=== PATIENT | female | born 1960 | race African-American/Black ===

== ENCOUNTER 2017-01-05 08:19 | Emergency (ER) | payer MEDICARE, OTHER ==
[2017-01-05 08:27] VITALS: BP 147/82
[2017-01-05] MEDS ORDERED: LIDOCAINE 5% (700 MG) TRANSDERMAL ADH..PATCH TP ONE (08:52)
[2017-01-05] MEDS ORDERED: KETOROLAC TROMETHAMINE 60 MG/2 ML SDV IM ONE (08:52)
--- NOTE | 2017-01-05 08:56 | ER Document Report ---
ED General - General Chief Complaint: Leg Pain Stated Complaint: LEG PAIN Time Seen by Provider: 01/05/17 08:52 - HPI Patient complains to provider of: Right leg pain Notes: Patient coming in for right leg pain ongoing for the last few days. Patient states recently moved from [place] to the [place] area. Patient states pain in the middle of his thigh. Patient states not relieved with her Percocet that she is prescribed for her chronic pain. Denies any other trauma. States pain with ambulation. Denies any fevers chills nausea vomiting diarrhea denies any numbness or tingling. - Related Data Allergies/Adverse Reactions: shellfish derived Allergy (Verified 01/05/17 08:28) Past Medical History - Social History Smoking Status: Unknown if Ever Smoked Family History: Reviewed & Not Pertinent Renal/ Medical History: Denies: Hx Peritoneal Dialysis Review of Systems - Review of Systems Constitutional: No symptoms reported EENT: No symptoms reported Cardiovascular: No symptoms reported Respiratory: No symptoms reported Gastrointestinal: No symptoms reported Genitourinary: No symptoms reported Female Genitourinary: No symptoms reported Musculoskeletal: Muscle pain Skin: No symptoms reported Hematologic/Lymphatic: No symptoms reported Neurological/Psychological: No symptoms reported -: Yes All other systems reviewed and negative Physical Exam - Vital signs Vitals: Temp Pulse BP Pulse Ox 98.6 F 82 147/82 H 96 01/05/17 08:26 01/05/17 08:26 01/05/17 08:26 01/05/17 08:26 Interpretation: Normal - General General appearance: Appears well, Alert - HEENT Head: Normocephalic, Atraumatic Eyes: Normal Pupils: PERRL - Respiratory Respiratory status: No respiratory distress Chest status: Nontender Breath sounds: Normal Chest palpation: Normal - Cardiovascular Rhythm: Regular Heart sounds: Normal auscultation Murmur: No - Abdominal Inspection: Normal Distension: No distension Bowel sounds: Normal Tenderness: Nontender Organomegaly: No organomegaly - Back Back: Normal, Nontender - Extremities General upper extremity: Normal inspection, Nontender, Normal color, Normal ROM , Normal temperature General lower extremity: Normal inspection, Tender - Tenderness to palpation to the mid lateral right thigh no signs of obvious trauma seen, Normal color, Normal ROM, Normal temperature, Normal weight bearing. No: Leti's sign - Neurological Neuro grossly intact: Yes Cognition: Normal Orientation: AAOx4 Lauren Coma Scale Eye Opening: Spontaneous Lauren Coma Scale Verbal: Oriented [place] Coma Scale Motor: Obeys Commands Lauren Coma Scale Total: 15 Speech: Normal Motor strength normal: LUE, RUE, LLE, RLE Sensory: Normal - Psychological Associated symptoms: Normal affect, Normal mood - Skin Skin Temperature: Warm Skin Moisture: Dry Skin Color: Normal Course - Re-evaluation Re-evalutation: 01/05/17 09:01 Patient more likely has a muscle strain. Patient is asking for a cortisone shot. Explained the patient do not give cortisone shots here. Splint to the patient she can use ice heat for pain control I will give the patient aLidoderm patch and a shot of Toradol.Patient is to continue with her chronic pain regimen. - Vital Signs Vital signs: Temp Pulse Resp BP Pulse Ox 98.6 F 82 147/82 H 96 01/05/17 08:26 01/05/17 08:26 01/05/17 08:26 01/05/17 08:26 Discharge - Discharge Clinical Impression: Muscle strain Condition: Good Disposition: HOME, SELF-CARE Instructions: Ice Massage ([facility]), Muscle Strain ([facility]), Warm Packs ([facility]) Additional Instructions: Examination today is consistent with a muscle strain. He may continue to take her medications at home for pain he may also take Tylenol and Motrin for pain control. Ice packs ice massage and warm packs will also aid in your pain. I will give you a prescription for lidocaine patches. Please be aware that these patches may be expensive and your insurance may not cover them. If your insurance does not cover the patches she can ask your pharmacist about over-the- counter patches or creams (salonpas lidocaine patches, aspercreme with lidocaine ) Prescriptions: Lidocaine [Lidoderm] 700 mg TP DAILY #30 adh..patch Forms: Return to Work
== END 2017-01-05 09:13 | disposition home or self-care (01) ==
LOC: ER 08:19
DX: T14.8XXA Other injury of unspecified body region, initial encounter (principal); X58.XXXA Exposure to other specified factors, initial encounter; M79.1 Myalgia; G89.29 Other chronic pain; Z79.891 Long term (current) use of opiate analgesic; Z91.013 Allergy to seafood
CPT/HCPCS: 99283; 96372; J1885

== ENCOUNTER 2017-11-08 11:19 | Emergency (ER) | payer MEDICARE ==
[2017-11-08] MEDS ORDERED: ONDANSETRON 4 MG TAB.RAPDIS PO ONE (13:18)
[2017-11-08 14:37] LABS: ABSOLUTE EOSINOPHILS # (AUTO) 0.1 10^3/uL (0.0-0.6); ABSOLUTE LYMPHOCYTES (AUTO) 1.4 10^3/uL (0.5-4.7); ABSOLUTE MONOCYTES (AUTO) 0.3 10^3/uL (0.1-1.4); ABSOLUTE NEUT (AUTO) 1.4 10^3/uL (1.7-8.2); BASOPHILS % (AUTO) 1.2 % (0-2); EOSINOPHILS % (AUTO) 2.9 % (0-6); HEMATOCRIT 43.5 % (36.0-47.0); HEMOGLOBIN 14.7 g/dL (12.0-15.5); MEAN CORPUSCULAR HEMOGLOBIN 29.4 pg (27.0-33.4); MEAN CORPUSCULAR HGB CONC 33.8 g/dL (32.0-36.0); MEAN CORPUSCULAR VOLUME 87 fl (80-97); MONOCYTES % (AUTO) 8.1 % (3-13); PLATELET COUNT 270 10^3/uL (150-450); RED CELL DISTRIBUTION WIDTH 14.3 % (11.5-14.0); SEGMENTED NEUTROPHILS % (AUTO) 43.8 % (42-78); TOTAL CELLS COUNTED % (AUTO) 100 %; WHITE BLOOD COUNT 3.1 10^3/uL (4.0-10.5)
[2017-11-08 14:55] LABS: ALANINE AMINOTRANSFERASE 27 U/L (9-52); ALBUMIN 4.7 g/dL (3.5-5.0); ALKALINE PHOSPHATASE 78 U/L (38-126); ANION GAP 10 (5-19); ASPARTATE AMINO TRANSFERASE 36 U/L (14-36); BILIRUBIN,DIRECT 0.4 mg/dL (0.0-0.4); BILIRUBIN,TOTAL 0.6 mg/dL (0.2-1.3); BLOOD UREA NITROGEN 14 mg/dL (7-20); CALCIUM 9.7 mg/dL (8.4-10.2); CARBON DIOXIDE 33 mmol/L (22-30); CHLORIDE 101 mmol/L (98-107); GLUCOSE 108 mg/dL (75-110); POTASSIUM 4.2 mmol/L (3.6-5.0); SODIUM 143.5 mmol/L (137-145); TOTAL PROTEIN 8.7 g/dL (6.3-8.2)
--- NOTE | 2017-11-08 15:35 | ER Document Report ---
ED General - General Chief Complaint: Abdominal Pain Stated Complaint: ABDOMINAL PAIN Time Seen by Provider: 11/08/17 13:16 Mode of Arrival: Ambulatory Information source: Patient, Relative, [facility] Records Notes: 57-year-old female with spinal stenosis, chronic pain presents with 1 week of generalized abdominal cramping that worsened over the last 3 days. Patient has had associated nausea without vomiting. Yesterday she states while at [facility] she got lightheaded when her abdominal pain increased and then "her bowels exploded". She states she had a large bowel movement like "when you take a laxative". She denies any black or bloody stools. She denies taking a laxative. She is on long-term narcotic medication. She takes OxyContin 3 times daily. She denies any sick contacts, recent travel or recent antibiotic use. She reports inability to eat. TRAVEL OUTSIDE OF THE [place] IN LAST 30 DAYS: No - HPI Onset: Last week Onset/Duration: Gradual, Persistent, Worse Quality of pain: Cramping Severity: Moderate Associated symptoms: Diarrhea, Nausea, Sweating. denies: Chest pain, Fever, Headache, Vomiting, Shortness of breath Exacerbated by: Food Relieved by: Remaining still, Other - Bowel movement Similar symptoms previously: No Recently seen / treated by doctor: No - Related Data Allergies/Adverse Reactions: shellfish derived Allergy (Verified 11/08/17 11:21) Past Medical History - General Information source: Patient, Relative, [facility] Records - Social History Smoking Status: Never Smoker Frequency of alcohol use: Occasional Drug Abuse: None Lives with: Spouse/Significant other Family History: Reviewed & Not Pertinent Patient has suicidal ideation: No Patient has homicidal ideation: No Renal/ Medical History: Denies: Hx Peritoneal Dialysis Review of Systems - Review of Systems Notes: REVIEW OF SYSTEMS: CONSTITUTIONAL : Denies fever, chills, or sweats. Denies recent illness. Denies weight loss, recent hospitalizations. EENT: Denies visual changes, eye pain. Denies nasal or sinus congestion or discharge. Denies sore throat, oral lesions, difficulty swallowing. CARDIOVASCULAR: Denies chest pain. Denies palpitations. Denies lower extremity edema. RESPIRATORY: Denies cough, cold, or chest congestion. Denies shortness of breath, wheezing. GASTROINTESTINAL: Denies abdominal distention. Denies vomiting. Denies blood in vomitus, stools, or per rectum. Denies black, tarry stools. Denies constipation. GENITOURINARY: Denies difficulty urinating, painful urination, frequency, blood in urine, or vaginal discharge. MUSCULOSKELETAL: Denies back or neck pain or stiffness. Denies joint pain or swelling. SKIN: Denies rash, lesions or sores. HEMATOLOGIC : Denies easy bruising or bleeding. LYMPHATIC: Denies swollen glands. NEUROLOGICAL: Denies confusion or altered mental status. Denies passing out or loss of consciousness. Denies headache. Denies weakness or paralysis. Denies problems difficulty with ambulation, slurred speech. Denies sensory loss , numbness, or tingling. Denies seizures. PSYCHIATRIC: Denies anxiety or stress. Denies depression, suicidal ideation, or homicidal ideation. Denies visual or auditory hallucinations. Physical Exam - Vital signs Vitals: Temp Pulse Resp BP Pulse Ox 98.7 F 89 16 110/78 96 11/08/17 12:02 11/08/17 12:02 11/08/17 12:02 11/08/17 12:02 11/08/17 12:02 Interpretation: No: Hypotensive, Hypertensive, Hypoxic, Febrile - Notes Notes: PHYSICAL EXAMINATION: GENERAL: Well-appearing, well-nourished and in no acute distress. HEAD: Atraumatic, normocephalic. EYES: Pupils equal round and reactive to light, extraocular movements intact, conjunctiva are normal. ENT: Nares patent, oropharynx clear without exudates. Moist mucous membranes. NECK: Normal range of motion, supple without lymphadenopathy LUNGS: Breath sounds clear to auscultation bilaterally and equal. No wheezes rales or rhonchi. HEART: Regular rate and rhythm without murmurs ABDOMEN: Mild diffuse abdominal tenderness mild abdominal distention. No guarding, no rebound. No masses appreciated. Female : deferred Musculoskeletal: Normal range of motion, no pitting or edema. No cyanosis. NEUROLOGICAL: Cranial nerves grossly intact. Normal speech, normal gait. Normal sensory, motor exams PSYCH: Normal mood, normal affect. SKIN: Warm, Dry, normal turgor, no rashes or lesions noted. Course - Re-evaluation Re-evalutation: 11/08/17 18:18 Laboratory 11/08/17 11/08/17 14:00 14:00 WBC 3.1 L RBC 5.00 Hgb 14.7 Hct 43.5 MCV 87 MCH 29.4 MCHC 33.8 RDW 14.3 H Plt Count 270 Seg Neutrophils % 43.8 Lymphocytes % 44.0 Monocytes % 8.1 Eosinophils % 2.9 Basophils % 1.2 Absolute Neutrophils 1.4 L Absolute Lymphocytes 1.4 Absolute Monocytes 0.3 Absolute Eosinophils 0.1 Absolute Basophils 0.0 Sodium 143.5 Potassium 4.2 Chloride 101 Carbon Dioxide 33 H Anion Gap 10 BUN 14 Creatinine 1.13 Est GFR ( Amer) > 60 Est GFR (Non-Af Amer) 50 L Glucose 108 Calcium 9.7 Total Bilirubin 0.6 Direct Bilirubin 0.4 Neonat Total Bilirubin Not Reportable Neonat Direct Bilirubin Not Reportable Neonat Indirect Bili Not Reportable AST 36 ALT 27 Alkaline Phosphatase 78 Total Protein 8.7 H Albumin 4.7 Lipase 72.0 Abdomen/Pelvis CT 11/08/17 00:00 IMPRESSION: NO SIGNIFICANT OR ACUTE FINDING IN THE ABDOMEN OR PELVIS ON CT SCAN WITH IV CONTRAST. 57-year-old female with spinal stenosis, chronic pain presents with 1 week of generalized abdominal cramping that worsened over the last 3 days. Patient has had associated nausea without vomiting. Yesterday she states while at [facility] she got lightheaded when her abdominal pain increased and then "her bowels exploded". She states she had a large bowel movement like "when you take a laxative". She denies any black or bloody stools. She denies taking a laxative. She is on long-term narcotic medication. She takes OxyContin 3 times daily. She denies any sick contacts, recent travel or recent antibiotic use. She reports inability to eat. Patient was seen by myself upon arrival. Vital signs were reviewed. Patient is afebrile, normotensive and not hypoxic. Patient does not appear toxic or dehydrated. They are in no acute distress. Previous medical records and nursing notes reviewed. CBC is without leukocytosis or anemia. CMP is without electrolyte abnormalities. LFTs all within normal limits. Patient did receive Zofran and IV fluids during her ED course. On reevaluation patient reports that her pain and nausea have resolved. Findings of a normal CT and blood work were discussed with the patient. Patient provided the opportunity to ask questions, and express concerns. Discharge instructions discussed. Patient is agreeable with discharge home. Return indications explained and discussed with the patient who displays understanding. Patient encouraged to return to the emergency department immediately with any concerns. 11/09/17 22:20 11/09/17 22:23 11/09/17 22:24 - Vital Signs Vital signs: Temp Pulse Resp BP Pulse Ox 98.7 F 89 17 104/76 100 11/08/17 12:02 11/08/17 12:02 11/08/17 18:01 11/08/17 18:01 11/08/17 18:01 - Laboratory Result Diagrams: 11/08/17 14:00 11/08/17 14:00 Laboratory results interpreted by me: 11/08/17 11/08/17 14:00 14:00 WBC 3.1 L RDW 14.3 H Absolute Neutrophils 1.4 L Carbon Dioxide 33 H Est GFR (Non-Af Amer) 50 L Total Protein 8.7 H - Diagnostic Test Radiology reviewed: Image reviewed, Reports reviewed Discharge - Discharge Clinical Impression: Nausea, Dizziness Abdominal pain Qualifiers: Abdominal location: generalized Qualified Code(s): R10.84 - Generalized abdominal pain Condition: Good Disposition: HOME, SELF-CARE Instructions: Abdominal Pain ([facility]), Nausea or Vomiting, Nonspecific ([facility]), Viral Syndrome ([facility]) Additional Instructions: Your lab work and CAT scan today were completely normal. This is likely viral. If your abdominal pain returns or you are unable to tolerate any fluids please return immediately to the emergency room. Prescriptions: Dicyclomine HCl [Bentyl 20 mg Tablet] 20 mg PO Q8H PRN #12 tablet PRN Reason: Abdominal Cramping Ondansetron [Zofran Odt 4 mg Tablet] 1 tab PO Q4H PRN #15 tab.rapdis PRN Reason: For Nausea/Vomiting Referrals: VAL WATTS MD [Primary Care Provider] - Follow up as needed
--- NOTE | 2017-11-08 18:13 | RADIOLOGY REPORT (SQ) ---
EXAM DESCRIPTION: CT ABD/PELVIS WITH IV ORAL COMPLETED DATE/TIME: 11/08/2017 5:39 pm REASON FOR STUDY: abd pain h/o gastric bypass COMPARISON: None. TECHNIQUE: CT scan of the abdomen and pelvis performed using helical scanning technique with dynamic intravenous contrast injection. With oral contrast. Images reviewed with lung, soft tissue, and bon e windows. Reconstructed coronal and sagittal MPR images reviewed. Delayed images for evaluation of t he urinary system also acquired. All images stored on PACS. All CT scanners at this facility use dose modulation, iterative reconstruction, and/or weight based d osing when appropriate to reduce radiation dose to as low as reasonably achievable (ALARA). [facility]: Dose Right [facility]: CareDose [facility]: Dose Right [facility]: Teradose 4D [facility]: [employer] CONTRAST TYPE AND DOSE: contrast/concentration: Isovue 350.00 mg/ml; Total Contrast Delivered: 99.0 ml; Total Saline Delivered: 72.0 ml RENAL FUNCTION: Creatinine 1.13 RADIATION DOSE: CT Rad equipment meets quality standard of care and radiation dose reduction techniq ues were employed. CTDIvol: 17.8 - 20.8 mGy. DLP: 3508 mGy-cm.. LIMITATIONS: None. FINDINGS: LOWER CHEST: No significant findings. No nodules or infiltrates. LIVER: Normal size. No masses. No dilated ducts. SPLEEN: Normal size. No focal lesions. PANCREAS: No masses. No significant calcifications. No adjacent inflammation or peripancreatic fluid collections. Pancreatic duct not dilated. GALLBLADDER: No identified stones by CT criteria. No inflammatory changes to suggest cholecystitis. ADRENAL GLANDS: No significant masses or asymmetry. RIGHT KIDNEY AND URETER: No solid masses. No significant calcifications. No hydronephrosis or hyd roureter. LEFT KIDNEY AND URETER: No solid masses. No significant calcifications. No hydronephrosis or hydr oureter. AORTA AND VESSELS: No aneurysm. No dissection. Renal arteries, SMA, celiac without stenosis. RETROPERITONEUM: No retroperitoneal adenopathy, hemorrhage or masses. BOWEL AND PERITONEAL CAVITY: No masses or inflammatory changes. No free fluid or peritoneal masses. Prior gastric surgery. APPENDIX: Normal. PELVIS: No mass. No free fluid. Normal bladder. ABDOMINAL WALL: No masses. No hernias. BONES: No significant or acute findings. OTHER: No other significant finding. IMPRESSION: NO SIGNIFICANT OR ACUTE FINDING IN THE ABDOMEN OR PELVIS ON CT SCAN WITH IV CONTRAST. TECHNICAL DOCUMENTATION: JOB ID: [id number] Quality ID # [id number]: Final reports with documentation of one or more dose reduction techniques (e.g., Au tomated exposure control, adjustment of the mA and/or kV according to patient size, use of iterative reconstruction technique) 2010 [employer]- All Rights Reserved Reading location - IP/workstation name: [email or web address]
[2017-11-08 18:30] VITALS: BP 104/76
== END 2017-11-08 18:45 | disposition home or self-care (01) ==
LOC: ER 11:19
DX: R10.84 Generalized abdominal pain (principal); R14.0 Abdominal distension (gaseous); R11.0 Nausea; R42 Dizziness and giddiness; R19.7 Diarrhea, unspecified; R61 Generalized hyperhidrosis; G89.29 Other chronic pain; Z79.891 Long term (current) use of opiate analgesic; Z91.013 Allergy to seafood
CPT/HCPCS: 99284; 36415; 83690; 85025; 80053; 74177; A9270; S0119

== ENCOUNTER 2017-12-15 08:20 | Emergency (ER) | payer MEDICARE, OTHER ==
[2017-12-15] MEDS ORDERED: KETOROLAC TROMETHAMINE 60 MG/2 ML SDV IM ONE (09:09)
[2017-12-15] MEDS ORDERED: OXYCODONE-ACETAMINOPHEN 5-325 MG TABLET PO ONE (09:10)
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
[2017-12-15 09:55] VITALS: BP 151/97
== END 2017-12-15 10:05 | disposition home or self-care (01) ==
LOC: ER 08:20
DX: M62.838 Other muscle spasm (principal); M48.07 Spinal stenosis, lumbosacral region; E66.01 Morbid (severe) obesity due to excess calories; I10 Essential (primary) hypertension; Z98.84 Bariatric surgery status; Z91.013 Allergy to seafood
CPT/HCPCS: 99283; 96372; J1885; A9270

== ENCOUNTER 2018-09-19 11:41 | Emergency (ER) | payer MEDICARE, OTHER ==
[2018-09-19] MEDS ORDERED: KETOROLAC TROMETHAMINE 60 MG/2 ML SDV IM ONE (12:38)
--- NOTE | 2018-09-19 12:42 | ER Document Report ---
HPI - HPI Patient complains to provider of: chronic back pain Time Seen by Provider: 09/19/18 12:31 Onset: Other Onset/Duration: Persistent Severity: Moderate Pain Level: 3 Context: Patient presents emergency department with complaints of chronic back pain flareup. Reports that she injured her back when a desk fell on her. I asked the patient how a desk fell on her making conversation and she became very irritated accused me of not believing her. I assured her I was just curious as to how the desk fell on her. Patient also reports she has taken percocet pain medication for her back but she is having increased pain that radiates across her right hip. She reported that it happens on occasion. Patient had noted on her triage note that she had abdominal pain, when this was discussed patient became very irritated and agitated regarding my questions. Clarified that she was having chronic back pain with a flareup across her right hip. Denies trauma. Denies fever vomiting diarrhea. Denies urinary bowel incontinence. Patient reports she usually gets a Toradol shot when this happens. Associated Symptoms: None Exacerbated by: Denies Relieved by: Denies Similar symptoms previously: Yes Recently seen / treated by doctor: Yes Past Medical History - General Information source: Patient - Social History Smoking Status: Unknown if Ever Smoked Cigarette use (# per day): No Frequency of alcohol use: None Drug Abuse: None Lives with: Family Family History: Reviewed & Not Pertinent Patient has suicidal ideation: No Patient has homicidal ideation: No - Past Medical History Cardiac Medical History: Reports: Hx Hypertension Renal/ Medical History: Denies: Hx Peritoneal Dialysis Traumatic Medical History: Reports: Other - chronic back pain, neck pain Past Surgical History: Reports: Hx Abdominal Surgery - gastric bypass Vertical Provider Document - CONSTITUTIONAL Agree With Documented VS: Yes Exam Limitations: No Limitations General Appearance: WD/WN, No Apparent Distress - INFECTION CONTROL TRAVEL OUTSIDE OF THE [place] IN LAST 30 DAYS: No - HEENT HEENT: Atraumatic - NECK Neck: Other - soft collar in place - RESPIRATORY Respiratory: No Respiratory Distress - CARDIOVASCULAR Cardiovascular: Regular Rate - GI/ABDOMEN Gastrointestinal: Abdomen Soft, Abdomen Non-Tender - BACK Notes: no obvious deformity, pt moving without problems on the stretcher, no weakness - MUSCULOSKELETAL/EXTREMETIES Musculoskeletal/Extremeties: MATILDE CARBALLO - NEURO Level of Consciousness: Awake, Alert, Appropriate Motor/Sensory: No Motor Deficit - DERM Integumentary: Warm, Dry Course - Re-evaluation Re-evalutation: 09/19/18 12:41 Seems very irritated with all my questions. Since patient reports that this is her chronic back pain with a flareup in how was treated his Toradol I went ahead and ordered the Toradol injection. She was instructed to follow-up with her primary care provider for reevaluation within a week Low suspicion for any meningitis, fracture, expanding/ruptured AAA, cauda equina syndrome, epidural mass lesion/abscess, herniated disc causing severe spinal stenosis, or other systemic infection at this time. Patient is aware that this condition can change from initial presentation and that she needs monitor symptoms closely for any acute changes. - Vital Signs Vital signs: Temp Pulse Resp BP Pulse Ox 98.7 F 76 16 151/85 H 97 09/19/18 11:54 09/19/18 11:54 09/19/18 11:54 09/19/18 11:54 09/19/18 11:54 Discharge - Discharge Clinical Impression: Chronic back pain Qualifiers: Back pain location: back pain in unspecified location Back pain laterality: right Qualified Code(s): M54.9 - Dorsalgia, unspecified Condition: Stable Disposition: HOME, SELF-CARE Instructions: Low Back Pain ([facility]), Toradol Injection ([facility]) Additional Instructions: *You have been evaluated for chronic back pain radiating to your hip *Take your medication as prescribed *Follow up with a primary care provider within one week for recheck *Return to ED for worsening condition, changes, needs Forms: Elevated Blood Pressure, Return to School Referrals: CHRISTELLE BENITEZ, [employer] [Primary Care Provider] - Follow up as needed
[2018-09-19 13:07] VITALS: BP 151/101
== END 2018-09-19 13:00 | disposition home or self-care (01) ==
LOC: ER 11:41
DX: G89.29 Other chronic pain (principal); M54.9 Dorsalgia, unspecified; I10 Essential (primary) hypertension
CPT/HCPCS: 99283; 96372; J1885

== ENCOUNTER 2018-11-20 22:21 | Emergency (ER) | payer MEDICARE ==
[2018-11-21] MEDS ORDERED: DIPHENHYDRAMINE HCL 50 MG/ML VIAL IM ONE (00:12)
--- NOTE | 2018-11-21 00:18 | ER Document Report ---
HPI - HPI Time Seen by Provider: 11/20/18 23:58 Pain Level: 4 Notes: Patient is a 58-year-old female with history of hypertension who presents complaining of itching primarily to her left anterior lower leg over the past 2 to 3 days. She has not noticed any bumps or rash. She is not aware of anything new including foods, detergents, soaps, clothing, food, or known insect bite. She has not noticed any redness. She is otherwise able to eat and drink without difficulty. She is urinating normally. Patient states that she primarily notices increased itching when she walks from outside to inside of her home. No one else in the household has similar symptoms. Denies any headache, fever, neck pain, URI, sore throat, chest pain, palpitations, syncope, cough, shortness of breath, wheeze, dyspnea, abdominal pain, nausea/vomiting/diarrhea, urinary retention, dysuria, hematuria, or rash. No tick bite. - ROS Systems Reviewed and Negative: Yes All other systems reviewed and negative Past Medical History - Social History Smoking Status: Never Smoker Family History: Reviewed & Not Pertinent - Past Medical History Cardiac Medical History: Reports: Hx Hypertension Renal/ Medical History: Denies: Hx Peritoneal Dialysis Past Surgical History: Reports: Hx Abdominal Surgery - gastric bypass Vertical Provider Document - CONSTITUTIONAL Agree With Documented VS: Yes Notes: PHYSICAL EXAMINATION: GENERAL: Well-appearing, well-nourished and in no acute distress. HEAD: Atraumatic, normocephalic. EYES: Pupils equal round and reactive to light, extraocular movements intact, sclera anicteric, conjunctiva are normal. ENT: Nares patent and without discharge. oropharynx clear without exudates. No tonsilar hypertrophy or erythema. Moist mucous membranes. NECK: Normal range of motion, supple without lymphadenopathy LUNGS: Breath sounds clear to auscultation bilaterally and equal. No wheezes rales or rhonchi. HEART: Regular rate and rhythm without murmurs, rubs, gallops. Musculoskeletal: FROM to passive/active. Strength 5+/5. Extremities: No cyanosis, clubbing, or edema b/l. Peripheral pulses 2+. Capillary refill less than 3 seconds. NEUROLOGICAL: Cranial nerves grossly intact. Normal speech, normal gait. Normal sensory, motor exams PSYCH: Normal mood, normal affect. SKIN: Warm, Dry, normal turgor, no rashes or lesions noted. - INFECTION CONTROL TRAVEL OUTSIDE OF THE [place] IN LAST 30 DAYS: No Course - Re-evaluation Re-evalutation: 11/21/18 00:16 Patient is an afebrile, well-hydrated, 58-year-old female who presents with pruritus to the left lower anterior leg, unspecified. There is no evidence of rash or lesion. Vitals are acceptable without significant tachycardia, tachypnea, or hypoxia. PE is otherwise unremarkable. Patient is nontoxic- appearing and is tolerating p.o. without difficulty. Benadryl given IM today. Low suspicion for any necrotizing fasciitis, SJS, SSS, drug reaction, sepsis, meningitis, syphilis, Lyme disease, [place] spotted fever, scabies, cellulitis, or other systemic emergent condition at this time. Patient aware that condition can change from initial presentation and she needs to monitor symptoms closely and seek medical attention with any acute changes. I will send her home with a prescription for hydroxyzine. Recheck with your PCM in 2 to 3 days. Consider consult with dermatology. Return to the ED with any other worsening/concerning symptoms as reviewed. Patient is in agreement. - Vital Signs Vital signs: Temp Pulse Resp BP Pulse Ox 98.0 F 83 148/83 H 96 11/20/18 22:32 11/20/18 22:32 11/20/18 22:32 11/20/18 22:32 Discharge - Discharge Clinical Impression: Pruritus Condition: Stable Disposition: HOME, SELF-CARE Additional Instructions: Keep the skin clean Wash with mild soap and water Tylenol/ibuprofen if needed Triple antibiotic ointment daily Take medication as directed Monitor for any worsening symptoms Recheck with your PCM in 2-3 days Consider consult with dermatology for ongoing/worsening symptoms Return to the ED with any worsening symptoms and/or development of fever, headache, chest pain, palpitations, syncope, shortness of breath, trouble breathing, abdominal pain, n/v/d, abscess, purulent discharge, red streaks, worsening swelling, or other worsening symptoms that are concerning to you. Prescriptions: Hydroxyzine HCl [Atarax 25 mg Tablet] 1 tab PO TID #15 tablet Forms: Elevated Blood Pressure Referrals: CHRISTELLE BENITEZ, [employer]PER[employer]OR-[employer] [Primary Care Provider] - Follow up as needed CLAUDINE EDWARDS DO [ACTIVE STAFF] - Follow up as needed
[2018-11-21 00:35] VITALS: BP 140/85
== END 2018-11-21 00:58 | disposition home or self-care (01) ==
LOC: ER 22:21
DX: L29.9 Pruritus, unspecified (principal); I10 Essential (primary) hypertension
CPT/HCPCS: 99282; J1200

== ENCOUNTER 2018-11-24 12:47 | Emergency (ER) | payer MEDICARE ==
[2018-11-24 12:54] VITALS: BP 179/95
--- NOTE | 2018-11-24 12:56 | ER Document Report ---
HPI - HPI Patient complains to provider of: Med refill, pruritus both ankles Time Seen by Provider: 11/24/18 12:50 Onset: Other - For 5 days Onset/Duration: Intermittent Quality of pain: No pain, Other - Itchy Severity: None Pain Level: Denies Associated Symptoms: Other - Itchy rash to both ankles Exacerbated by: Denies Relieved by: Denies Similar symptoms previously: Yes Recently seen / treated by doctor: Yes - ROS ROS below otherwise negative: Yes - CONSTITUTIONAL Constitutional: DENIES: Fever, Chills - EENT EENT: DENIES: Sore Throat, Ear Pain, Nasal Drainage-Clear, Nasal Drainage- Purulent, Congestion, Eye problems - NEURO Neurology: DENIES: Headache, Weakness, Vision blurred, Dizzinesss / Vertigo - CARDIOVASCULAR Cardiovascular: DENIES: Chest pain - RESPIRATORY Respiratory: DENIES: Trouble Breathing, Coughing - GASTROINTESTINAL Gastrointestinal: DENIES: Abdominal Pain, Nausea, Patient vomiting, Diarrhea, Constipation, Black / Bloody Stools - URINARY Urinary: DENIES: Dysuria, Urgency, Frequency - REPRODUCTIVE Reproductive: DENIES: :, Postmenopausal, Abnormal bleeding / discharge - MUSCULOSKELETAL Musculoskeletal: DENIES: Extremity pain, Back Pain, Neck Pain, Swelling - DERM Skin Color: Normal - Both ankles Skin Problems: Rash Past Medical History - General Information source: Patient - Social History Smoking Status: Never Smoker Frequency of alcohol use: None Drug Abuse: None Lives with: Family Family History: Reviewed & Not Pertinent Patient has suicidal ideation: No Patient has homicidal ideation: No - Past Medical History Cardiac Medical History: Reports: Hx Hypertension Pulmonary Medical History: Reports: None EENT Medical History: Reports: None Neurological Medical History: Reports: None Endocrine Medical History: Reports: None Renal/ Medical History: Reports: None Malignancy Medical History: Reports: None GI Medical History: Reports: None Musculoskeletal Medical History: Reports None Skin Medical History: Reports None Psychiatric Medical History: Reports: None Traumatic Medical History: Reports: None Infectious Medical History: Reports: None Past Surgical History: Reports: Hx Abdominal Surgery - gastric bypass Vertical Provider Document - CONSTITUTIONAL Agree With Documented VS: Yes Exam Limitations: No Limitations General Appearance: WD/WN, No Apparent Distress - INFECTION CONTROL TRAVEL OUTSIDE OF THE [place] IN LAST 30 DAYS: No - HEENT HEENT: Atraumatic, Normal ENT Exam, Normocephalic, PERRLA - NECK Neck: Normal Inspection, Supple - RESPIRATORY Respiratory: Breath Sounds Normal, No Respiratory Distress - CARDIOVASCULAR Cardiovascular: Regular Rate, Regular Rhythm, No Murmur - GI/ABDOMEN Gastrointestinal: Abdomen Soft, Abdomen Non-Tender, No Organomegaly, Normal Bowel Sounds - MUSCULOSKELETAL/EXTREMETIES Musculoskeletal/Extremeties: MAEW, FROM, Non-Tender - NEURO Level of Consciousness: Awake, Alert, Appropriate Motor/Sensory: No Motor Deficit, No Sensory Deficit Deep Tendon Reflexes: 2+ - DERM Integumentary: Rash - Both ankles Discharge - Discharge Clinical Impression: Medication refill, Pruritus Condition: Stable Disposition: HOME, SELF-CARE Additional Instructions: You were here for a med refill on your hydroxyzine for your itching and pruritus. Antihistamines An antihistamine has been prescribed to control your symptoms. Antihistamines are used for many reasons, including itching, watering eyes, runny nose, allergic swelling, hives, and insect stings. Antihistamines may cause drowsiness, especially with the first dose. Do not operate machinery or drive while under the effects of the medication. Other common side effects include dry mouth and eyes. In older persons, antihistamines can occasionally cause urinary retention, constipation, and trouble focusing the eyes. Do not combine the medication with alcohol, or with any other medication without talking to your doctor. FOLLOW-UP CARE: If you have been referred to a physician for follow-up care, call the physicians office for an appointment as you were instructed or within the next two days. If you experience worsening or a significant change in your symptoms, notify the physician immediately or return to the Emergency Department at any time for re-evaluation. Prescriptions: Hydroxyzine HCl [Atarax 25 mg Tablet] 1 tab PO TIDP PRN #25 tablet PRN Reason: Forms: Elevated Blood Pressure Referrals: CHRISTELLE BENITEZ FNP-C [Primary Care Provider] - Follow up as needed
== END 2018-11-24 13:19 | disposition home or self-care (01) ==
LOC: ER 12:47
DX: Z76.0 Encounter for issue of repeat prescription (principal); L29.9 Pruritus, unspecified; R21 Rash and other nonspecific skin eruption
CPT/HCPCS: 99282

== ENCOUNTER 2019-01-16 23:29 | Emergency (ER) | payer MEDICARE, OTHER ==
--- NOTE | 2019-01-17 01:13 | ER Document Report ---
ED General - General Chief Complaint: Dizziness Stated Complaint: DIZZINESS,BLOOD SUGAR PROBLEMS Time Seen by Provider: 01/17/19 01:03 Primary Care Provider: ILA DYE MD [Primary Care Provider] - Follow up as needed TRAVEL OUTSIDE OF THE [place] IN LAST 30 DAYS: No - Related Data Allergies/Adverse Reactions: shellfish derived Allergy (Verified 11/24/18 12:49) Home Medications: Percocet. Lisinopril Past Medical History - Social History Smoking Status: Never Smoker Chew tobacco use (# tins/day): No Frequency of alcohol use: Occasional Drug Abuse: None Family History: Reviewed & Not Pertinent Patient has suicidal ideation: No Patient has homicidal ideation: No - Past Medical History Cardiac Medical History: Reports: Hx Hypertension Renal/ Medical History: Denies: Hx Peritoneal Dialysis Past Surgical History: Reports: Hx Abdominal Surgery - gastric bypass Physical Exam - Vital signs Vitals: Temp Pulse Resp BP Pulse Ox 97.7 F 72 18 165/89 H 100 01/16/19 23:34 01/16/19 23:34 01/16/19 23:34 01/16/19 23:34 01/16/19 23:34 - Notes Notes: Patient presents to the emergency department with acute onset of dizziness about 2 hours prior to arrival. She described as a spinning sensation gets typically better when she sat still. She does report it got worse when she was driving in the car. It with a intermittent stabbing pain in the right sikh area. She had no abnormal vision breath or palpitations. Fevers cough runny nose or sore throat. No vomiting or diarrhea. With nausea with this episode. She also reports that she said her ear stopped up for the past several days discharge and hearing is normal she checked her sugar and r and thinks it was either a 70-90 he drank some orange juice without any relief History is having her hypertension. She has hypoglycemia. No coronary disease. Her neck pain with spasms. She does not smoke occasional alcohol. Med is been reviewed Review of systems all systems been reviewed and acutely negative except as in HPI PHYSICAL EXAMINATION: Noted vital signs GENERAL: Well-appearing, well-nourished and in no acute distress. HEAD: Atraumatic, normocephalic. EYES: Pupils equal round and reactive to light, extraocular movements intact, to be 1-2 beat nystagmus, sclera anicteric, conjunctiva are normal. The face is nontender. There is no tenderness in the temporal area or pulsations ENT: nares patent, oropharynx clear without exudates. Moist mucous membranes. TMs are slightly retracted without red and bulging. The tragus is nontender NECK: Normal range of motion, supple without lymphadenopathy LUNGS: Breath sounds clear to auscultation bilaterally and equal. No wheezes rales or rhonchi. HEART: Regular rate and rhythm without murmurs ABDOMEN: Soft, nontender, normoactive bowel sounds. No guarding, no rebound. No masses appreciated. EXTREMITIES: Normal range of motion, no pitting or edema. No cyanosis. Back reveals no bony tenderness NEUROLOGICAL: Alert and oriented x4. Cranial nerves she has symmetrical smile and facial expressions. Motor strength is 5/5 bilaterally in upper lower extre mities downgoing sensation intact light touch negative Romberg. At this time she does have reproducible vertiginous symptoms with rapid movement of her head gait was not tested at this time PSYCH: Normal mood, normal affect. SKIN: Warm, Dry, normal turgor, no rashes or lesions noted. Course - Re-evaluation Re-evalutation: 01/17/19 02:33 ED patient is remained stable continue to have a nonfocal neurological exam was given Antivert with improvement of her symptoms. Medical decision making presents with acute onset of his to be peripheral vertigo. She is feeling better neurological exam at that point she can be discharged home there is no evidence suggest this answer. I have discussed findings diagnosis and treatment with patient - Vital Signs Vital signs: Temp Pulse Resp BP Pulse Ox 97.8 F 72 16 152/78 H 98 01/17/19 03:00 01/17/19 03:00 01/17/19 03:00 01/17/19 03:00 01/17/19 03:00 - Laboratory Result Diagrams: 01/17/19 01:25 01/17/19 01:25 Laboratory results interpreted by me: 01/17/19 01/17/19 01/17/19 01:25 01:25 01:25 WBC 2.6 L RDW 14.1 H Absolute Neuts (auto) 1.2 L Chloride 108 H Total Bilirubin 0.1 L Ur Leukocyte Esterase SMALL H Urine Ascorbic Acid 40 H Discharge - Discharge Clinical Impression: Vertigo Condition: Good Disposition: HOME, SELF-CARE Instructions: Meclizine ([facility]) Additional Instructions: Please review the discharge instructions Rest. Avoid rapid movement or bending Return if you become too dizzy to walk Follow-up with your family doctor in 1 week to recheck your blood pressure. Return if you get worse Prescriptions: Meclizine HCl [Antivert 25 mg Tablet] 25 mg PO QID #21 tablet Loratadine 10 mg PO DAILY #10 capsule Ondansetron [Zofran Odt 4 mg Tablet] 1 tab PO Q4H PRN #10 tab.rapdis PRN Reason: For Nausea/Vomiting Forms: Elevated Blood Pressure Referrals: ILA DYE MD [Primary Care Provider] - Follow up as needed
[2019-01-17 01:41] LABS: ABSOLUTE EOSINOPHILS # (AUTO) 0.1 10^3/uL (0.0-0.6); ABSOLUTE LYMPHOCYTES (AUTO) 1.1 10^3/uL (0.5-4.7); ABSOLUTE MONOCYTES (AUTO) 0.2 10^3/uL (0.1-1.4); ABSOLUTE NEUT (AUTO) 1.2 10^3/uL (1.7-8.2); BASOPHILS % (AUTO) 0.6 % (0-2); EOSINOPHILS % (AUTO) 3.5 % (0-6); HEMATOCRIT 40.2 % (36.0-47.0); HEMOGLOBIN 12.9 g/dL (12.0-15.5); MEAN CORPUSCULAR HEMOGLOBIN 28.5 pg (27.0-33.4); MEAN CORPUSCULAR VOLUME 89 fl (80-97); MONOCYTES % (AUTO) 8.2 % (3-13); PLATELET COUNT 214 10^3/uL (150-450); RED BLOOD COUNT 4.52 10^6/uL (3.72-5.28); RED CELL DISTRIBUTION WIDTH 14.1 % (11.5-14.0); SEGMENTED NEUTROPHILS % (AUTO) 45.7 % (42-78); TOTAL CELLS COUNTED % (AUTO) 100 %; WHITE BLOOD COUNT 2.6 10^3/uL (4.0-10.5)
[2019-01-17] MEDS ORDERED: ONDANSETRON 4 MG TAB.RAPDIS PO ONE (01:47)
[2019-01-17] MEDS ORDERED: MECLIZINE HCL 25 MG TABLET PO ONE (01:48)
[2019-01-17 01:54] LABS: APPEARANCE,URINE CLEAR; BILIRUBIN,URINE NEGATIVE (NEGATIVE); COLOR,URINE YELLOW; GLUCOSE, URINE NEGATIVE (NEGATIVE); KETONES,URINE NEGATIVE (NEGATIVE); LEUKOCYTE ESTERASE,URINE SMALL (NEGATIVE); NITRITE,URINE NEGATIVE (NEGATIVE); PROTEIN,URINE NEGATIVE (NEGATIVE); UROBILINOGEN,URINE NEGATIVE mg/dL (<2.0)
[2019-01-17 01:57] LABS: URINE SPECIFIC GRAVITY 1.011
[2019-01-17 01:59] LABS: BLOOD UREA NITROGEN 13 mg/dL (7-20); CALCIUM 9.2 mg/dL (8.4-10.2); CARBON DIOXIDE 29 mmol/L (22-30); CHLORIDE 108 mmol/L (98-107); GLUCOSE 99 mg/dL (75-110); POTASSIUM 4.6 mmol/L (3.6-5.0)
[2019-01-17 02:00] LABS: ALBUMIN 3.8 g/dL (3.5-5.0); ALKALINE PHOSPHATASE 85 U/L (38-126); ANION GAP 5 (5-19); ASPARTATE AMINO TRANSFERASE 26 U/L (14-36); BILIRUBIN,DIRECT 0.1 mg/dL (0.0-0.4); BILIRUBIN,TOTAL 0.1 mg/dL (0.2-1.3); CREATINE KINASE 118 U/L (30-135); TOTAL PROTEIN 6.7 g/dL (6.3-8.2)
[2019-01-17 02:11] LABS: CREATINE KINASE MB 1.11 ng/mL (<4.55)
[2019-01-17 02:15] LABS: TROPONIN I < 0.012 ng/mL
[2019-01-17 03:28] VITALS: BP 152/78
--- NOTE | 2019-01-17 07:31 | EKG REPORT ---
SEVERITY:- NORMAL ECG - SINUS RHYTHM : Confirmed by: Sanjay Wolf MD 17-Jan-2019 07:31:25
== END 2019-01-17 03:00 | disposition home or self-care (01) ==
LOC: ER 23:29
DX: R42 Dizziness and giddiness (principal); E16.2 Hypoglycemia, unspecified; R51 Headache; I10 Essential (primary) hypertension; Z79.899 Other long term (current) drug therapy; Z79.891 Long term (current) use of opiate analgesic; Z91.013 Allergy to seafood
CPT/HCPCS: 93005; 99284; 36415; 82553; 82962; 82550; 85025; 80053; 81001; 84484; 93010; A9270 ×2; S0119

== ENCOUNTER 2019-04-14 21:43 | Emergency (ER) | payer MEDICARE, OTHER ==
--- NOTE | 2019-04-14 22:53 | ER Document Report ---
ED Medical Screen (RME) - General Chief Complaint: Sore Throat Stated Complaint: SORE THROAT Time Seen by Provider: 04/14/19 22:48 Primary Care Provider: ILA DYE MD [Primary Care Provider] - Follow up as needed Mode of Arrival: Ambulatory Information source: Patient Notes: Patient presents emergency department with complaints of sore throat for the past 2 days. Denies fever vomiting diarrhea. Denies exposure to strep. Reports she recently had dental work done with sutures. She reports the sutures had disappeared and she is worried that she swallowed them and hurt her throat. Patient swallows without problems but complains of sore throat. Patient has clear voice respiratory rate even unlabored I have greeted and performed a rapid initial assessment of this patient. A comprehensive ED assessment and evaluation of the patient, analysis of test results and completion of the medical decision making process will be conducted by additional ED providers. TRAVEL OUTSIDE OF THE [place] IN LAST 30 DAYS: No - Related Data Allergies/Adverse Reactions: shellfish derived Allergy (Verified 11/24/18 12:49) Home Medications: muscle relaxers. BP pills Past Medical History - Past Medical History Cardiac Medical History: Reports: Hx Hypertension Renal/ Medical History: Denies: Hx Peritoneal Dialysis Past Surgical History: Reports: Hx Abdominal Surgery - gastric bypass Physical Exam - Vital signs Vitals: Temp Pulse Resp BP Pulse Ox 98.2 F 89 18 153/87 H 95 04/14/19 21:56 04/14/19 21:56 04/14/19 21:56 04/14/19 21:56 04/14/19 21:56 Course - Vital Signs Vital signs: Temp Pulse Resp BP Pulse Ox 98.2 F 89 18 153/87 H 95 04/14/19 21:56 04/14/19 21:56 04/14/19 21:56 04/14/19 21:56 04/14/19 21:56 Doctor's Discharge - Discharge Referrals: ILA DYE MD [Primary Care Provider] - Follow up as needed
[2019-04-15] MEDS ORDERED: DEXAMETHASONE SOD PHOS INJ 10 MG/1 ML VIAL IM ONE (03:02)
--- NOTE | 2019-04-15 03:04 | ER Document Report ---
HPI - HPI Time Seen by Provider: 04/14/19 22:48 Pain Level: 2 Context: Patient is a 58-year-old female that comes emergency department for chief complaint of painful swallowing. She states this started earlier today. She denies fever. She is able to swallow, she denies swelling, she denies congestion, cough, chest pain, headache, or any other complaints. She denies any obvious exposures. She has no other complaints. - REPRODUCTIVE Reproductive: DENIES: : Past Medical History - General Information source: Patient - Social History Smoking Status: Never Smoker Frequency of alcohol use: None Drug Abuse: None Lives with: Family Family History: Reviewed & Not Pertinent Patient has suicidal ideation: No Patient has homicidal ideation: No - Past Medical History Cardiac Medical History: Reports: Hx Hypertension Renal/ Medical History: Denies: Hx Peritoneal Dialysis Past Surgical History: Reports: Hx Abdominal Surgery - gastric bypass - Immunizations Hx Diphtheria, Pertussis, Tetanus Vaccination: Yes Vertical Provider Document - CONSTITUTIONAL General Appearance: WD/WN, No Apparent Distress - INFECTION CONTROL TRAVEL OUTSIDE OF THE [place] IN LAST 30 DAYS: No - HEENT HEENT: Atraumatic, Normocephalic. negative: Normal ENT Exam - There is mild erythema of the posterior pharynx, no tonsillitis or exudates, clear airway, unremarkable oropharyngeal exam otherwise. Normal ears, sinuses, eyes - NECK Neck: Other - Bilateral mild anterior cervical adenopathy - RESPIRATORY Respiratory: Breath Sounds Normal, No Respiratory Distress - CARDIOVASCULAR Cardiovascular: Regular Rate, Regular Rhythm - GI/ABDOMEN Gastrointestinal: Abdomen Soft, Abdomen Non-Tender. negative: Abdomen Tender - BACK Back: Normal Inspection - MUSCULOSKELETAL/EXTREMETIES Musculoskeletal/Extremeties: MAEW, FROM, Non-Tender - NEURO Level of Consciousness: Awake, Alert, Appropriate Motor/Sensory: No Motor Deficit, No Sensory Deficit - DERM Integumentary: Warm, Dry, No Rash Course - Re-evaluation Re-evalutation: Patient with some erythema of the posterior pharynx, mild anterior cervical adenopathy, fairly benign exam however. Strep negative. Suspect this is viral. Soft benign abdomen with no evidence of splenomegaly. No fever. Offered symptom management pending throat culture and patient accepted. Discussed follow-up and return precautions. Patient states understanding and agreement. Stable at time of discharge. - Vital Signs Vital signs: Temp Pulse Resp BP Pulse Ox 98.2 F 89 18 153/87 H 95 04/14/19 21:56 04/14/19 21:56 04/14/19 21:56 04/14/19 21:56 04/14/19 21:56 Discharge - Discharge Clinical Impression: Lymphadenopathy Pharyngitis Qualifiers: Pharyngitis/tonsillitis etiology: unspecified etiology Qualified Code(s): J02.9 - Acute pharyngitis, unspecified Condition: Stable Disposition: HOME, SELF-CARE Additional Instructions: Your evaluation indicates pharyngitis, swelling/infection of the throat but your strep test is negative. This is most likely viral. We do have a culture growing and you will be contacted for any concerning results. You have been treated for your symptoms, symptoms should simply gradually resolve. Follow-up with primary care. Return if you worsen including difficulty swallowing or breathing, spiking fever, vomiting, or any other concerning or worsening symptoms. Referrals: ILA DYE MD [NO LOCAL MD] - Follow up as needed
[2019-04-15 03:24] VITALS: BP 150/77
== END 2019-04-15 03:23 | disposition home or self-care (01) ==
LOC: ER 21:43
DX: J02.9 Acute pharyngitis, unspecified (principal); R59.0 Localized enlarged lymph nodes; R13.10 Dysphagia, unspecified; I10 Essential (primary) hypertension
CPT/HCPCS: 99283; 96372; 87070; 87880; J1100